=== PATIENT | female | born 1975 | race Caucasian/White ===

== ENCOUNTER 2016-10-30 18:48 | Emergency (ER) | payer BC ==
[2016-10-30 19:08] VITALS: BP 122/78; PULSE 82; RESP 14; TEMP 98.6; O2SAT 97
--- NOTE | 2016-10-30 19:21 | UCPHY ---
H & P Time Seen by Provider: 10/30/16 19:13 Patient Type: New HPI/ROS: This patient presents with a chief complaint of a knee abrasion which chief feels may be infected. She fell approximately 1 week ago and has been doing well. She says that there has been some drainage present but she has had no fever and no constitutional symptoms. She says the knee is throbbing but this is not painful for her to walk or be active. Smoking Status: Never smoked Physical Exam: This is a well-developed well-nourished female who is in no acute distress. She is alert, cooperative, lucid and has normal mental status. Examination of the knee reveals a of abrasion that is healing with some localized erythema surrounding the wound. This is not particularly tender and there is no discharge at this time. There is no lymphangitis and no spreading of the erythema either proximally or distally. There is no deep bony tenderness and there is full range of motion of the knee. Constitutional: Initial Vital Signs Temperature (C) 37 C 10/30/16 19:04 Heart Rate 82 10/30/16 19:04 Respiratory Rate 14 10/30/16 19:04 Blood Pressure 122/78 H 10/30/16 19:04 O2 Sat (%) 97 10/30/16 19:04 O2 Delivery Mode Room Air Allergies/Adverse Reactions: No Known Allergies Allergy (Unverified 10/30/16 19:04) Home Medications: Medication Instructions Recorded NK [No Known Home Meds] 10/30/16 Medical Decision Making Differential Diagnosis: I do not believe that this abrasion is infected nor do I believe that x-rays are indicated. I believe the abrasion is in its normal phase of maturation. Departure - Departure Disposition: Home, Routine, Self-Care Clinical Impression: Abrasion, right knee, initial encounter Qualifiers: Encounter type: initial encounter Qualifier Code: (S80.211A) Abrasion, right knee, initial encounter Condition: Good Instructions: Abrasion (ED) Additional Instructions: Return for any suggestion of infection. If you notice spreading redness, swelling, increasing pain and tenderness or macario pus you should return immediately since these findings frequently indicate infection. It usually takes 3 days from the time of injury for an infection to begin. Activity as tolerated. Keep the wound covered until a scab forms. Referrals: Salazar Villalta MD [Primary Care Provider] - As per Instructions - PQRS PQRS Measurement: Not applicable
== END 2016-10-30 19:25 | disposition home or self-care (01) ==
LOC: CED 18:48
DX: S80.211A Abrasion, right knee, initial encounter (principal); W19.XXXD Unspecified fall, subsequent encounter; Y93.02 Activity, running; Y92.828 Other wilderness area as the place of occurrence of the external cause; Y99.8 Other external cause status
CPT/HCPCS: 99203-PO; G0463-PO

== ENCOUNTER → 2017-06-10 | Outpatient (CLI) | payer BC | LOC: FIMAGING 06:49 | PROVIDERS: ATTEND Family Medicine Sports Medicine | DX: M51.37 Other intervertebral disc degeneration, lumbosacral region (principal); M48.06 Spinal stenosis, lumbar region; M51.26 Other intervertebral disc displacement, lumbar region ==

== ENCOUNTER → 2018-05-04 | Outpatient (CLI) | payer BC | LOC: BRMIMAGING 14:41 | PROVIDERS: ATTEND Family Medicine Sports Medicine | DX: Z12.31 Encounter for screening mammogram for malignant neoplasm of breast (principal) ==